=== PATIENT | female | born 1980 | race Caucasian/White ===

== ENCOUNTER 2018-11-16 15:31 | Emergency (ER) | payer BC, OTHER, SELFPAY ==
[2018-11-16 15:41] VITALS: BP 154/73
--- NOTE | 2018-11-16 16:05 | EDM.PDOC ---
ED HPI GENERAL MEDICAL PROBLEM - General Chief Complaint: Bite:Animal, Insect Stated Complaint: BEE STING Time Seen by Provider: 11/16/18 15:43 - History of Present Illness INITIAL COMMENTS - FREE TEXT/NARRATIVE: HISTORY AND PHYSICAL: History of present illness: Patient 38-year-old white female presents status post insect bite in the form of bee sting to her right hand which he developed some scratchy throat subsequent she has had severe reaction prior. Patient does not have EpiPen she did take 2 Benadryl prior and is feeling improved since arrival here Review of systems: As per history of present illness and below otherwise all systems reviewed and negative. Past medical history: As per history of present illness and as reviewed below otherwise noncontributory. Surgical history: As per history of present illness and as reviewed below otherwise noncontributory. Social history: No reported history of drug or alcohol abuse. Family history: As per history of present illness and as reviewed below otherwise noncontributory. Physical exam: HEENT: Atraumatic, normocephalic, pupils reactive, negative for conjunctival pallor or scleral icterus, mucous membranes moist, throat clear, neck supple, nontender, trachea midline. Lungs: Clear to auscultation, breath sounds equal bilaterally, chest nontender. Heart: S1S2, regular, negative for clicks, rubs, or JVD. Abdomen: Soft, nondistended, nontender. Negative for masses or hepatosplenomegaly. Negative for costovertebral tenderness. Pelvis: Stable nontender. Genitourinary: Deferred. Rectal: Deferred. Extremities: Small swelling noted on the thenar eminence of her right hand with no retained stinger or other significant finding. Neuro: Awake, alert, oriented. Cranial nerves II through XII unremarkable. Cerebellum unremarkable. Motor and sensory unremarkable throughout. Exam nonfocal. Diagnostics: None Therapeutics: None Impression: #1 insect bite right hand (bee sting) Definitive disposition and diagnosis as appropriate pending reevaluation and review of above. Right Hand Pain Score (Numeric/FACES): 3 - Related Data Allergies Allergy/AdvReac Type Severity Reaction Status Date / Time Penicillins Allergy Hives Verified 11/16/18 15:39 Home Meds: Home Meds . [No Known Home Meds] 11/16/18 [History] Past Medical History - Infectious Disease History Infectious Disease History: Reports: Chicken Pox - Past Surgical History HEENT Surgical History: Reports: Oral Surgery Musculoskeletal Surgical History: Reports: Arthroscopic Knee Social & Family History - Family History Family Medical History: Noncontributory - Tobacco Use Smoking Status *Q: Never Smoker - Caffeine Use Caffeine Use: Reports: None - Recreational Drug Use Recreational Drug Use: No ED ROS GENERAL - Review of Systems Review Of Systems: ROS reveals no pertinent complaints other than HPI. ED EXAM, ANIMAL BITE - Physical Exam Exam: See Below (See dictation) Course - Vital Signs Last Recorded V/S: Last Vital Signs Temp 36.5 C 11/16/18 15:39 Pulse 71 11/16/18 15:39 Resp 16 11/16/18 15:39 BP 154/73 H 11/16/18 15:39 Pulse Ox 96 11/16/18 15:39 Departure - Departure Time of Disposition: 16:10 Disposition: Home, Self-Care 01 Condition: Good Clinical Impression: Insect bite - Discharge Information Referrals: PCP,Unknown [Primary Care Provider] - Additional Instructions: The following information is given to patients seen in the emergency department who are being discharged to home. This information is to outline your options for follow-up care. We provide all patients seen in our emergency department with a follow-up referral. The need for follow-up, as well as the timing and circumstances, are variable depending upon the specifics of your emergency department visit. If you don't have a primary care physician on staff, we will provide you with a referral. We always advise you to contact your personal physician following an emergency department visit to inform them of the circumstance of the visit and for follow-up with them and/or the need for any referrals to a consulting specialist. The emergency department will also refer you to a specialist when appropriate. This referral assures that you have the opportunity for followup care with a specialist. All of these measure are taken in an effort to provide you with optimal care, which includes your followup. Under all circumstances we always encourage you to contact your private physician who remains a resource for coordinating your care. When calling for followup care, please make the office aware that this follow-up is from your recent emergency room visit. If for any reason you are refused follow-up, please contact the [facility] emergency department at and asked to speak to the emergency department charge nurse. EpiPen Medrol as directed follow-up primary medical doctor as needed as discussed and return as needed as discussed
== END 2018-11-16 16:46 | disposition home or self-care (01) ==
LOC: MW.ED 15:31
DX: S60.561A Insect bite (nonvenomous) of right hand, initial encounter (principal); Z88.0 Allergy status to penicillin; W57.XXXA Bitten or stung by nonvenomous insect and other nonvenomous arthropods, initial encounter
CPT/HCPCS: 99282

== ENCOUNTER 2019-03-06 06:35 | Day surgery (SDC) | payer OTHER, SELFPAY ==
[~2019-03-06 06:35] MED LIST: Lactated Ringers 1,000 ML IV SCH
--- NOTE | 2019-03-06 07:17 | PCM.PREANE ---
Preanesthetic Assessment - Anesthesia/Transfusion/Family Hx Anesthesia History: Prior Anesthesia Without Reaction Family History of Anesthesia Reaction: No Transfusion History: No Prior Transfusion(s) Intubation History: Unknown - Review of Systems General: No Symptoms Pulmonary: No Symptoms Cardiovascular: No Symptoms Gastrointestinal: Difficulty Swallowing Neurological: No Symptoms Other: Reports: None - Physical Assessment Vital Signs: Last Vital Signs Temp 36.7 C 03/06/19 07:13 Pulse 62 03/06/19 07:13 Resp 16 03/06/19 07:13 BP 119/67 03/06/19 07:13 Pulse Ox 94 L 03/06/19 07:13 Height: 5 ft 2 in Weight: 83.007 kg ASA Class: 2 Mental Status: Alert & Oriented x3 Airway Class: Mallampati = 2 Dentition: Reports: Normal Dentition (small chip on the back of lt. front incisor) Thyro-Mental Finger Breadths: 3 Mouth Opening Finger Breadths: 3 ROM/Head Extension: Full Lungs: Clear to Auscultation, Normal Respiratory Effort Cardiovascular: Regular Rate, Regular Rhythm - Lab Values: Laboratory Last Values Urine HCG, Qual NEGATIVE (NEGATIVE) 03/06/19 06:45 - Allergies Allergies/Adverse Reactions: Allergies Allergy/AdvReac Type Severity Reaction Status Date / Time metronidazole Allergy Hives Verified 03/06/19 07:12 Penicillins Allergy Seizure Verified 03/06/19 07:12 - Blood Blood Available: No - Anesthesia Plan Pre-Op Medication Ordered: None - Acknowledgements Anesthesia Type Planned: MAC Pt an Appropriate Candidate for the Planned Anesthesia: Yes Alternatives and Risks of Anesthesia Discussed w Pt/Guardian: Yes Pt/Guardian Understands and Agrees with Anesthesia Plan: Yes PreAnesthesia Questionnaire HEENT History: Reports: Allergic Rhinitis, Other (See Below) Other HEENT History: wears glasses Cardiovascular History: Reports: None Respiratory History: Reports: None, Other (See Below) (h/o asthma, ok now) Gastrointestinal History: Reports: GERD, Other (See Below) Other Gastrointestinal History: dysphagia Genitourinary History: Reports: None 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 (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) (h/o ovarian cyst) Musculoskeletal History: Reports: None Neurological History: Reports: Migraines, Seizure Other Neuro History: states migraines in the past, seizure due to penicillin reaction Psychiatric History: Reports: Anxiety, Depression Other Psychiatric History: states depression & anxiety in the past Endocrine/Metabolic History: Reports: Obesity/BMI 30+ Hematologic History: Reports: None Immunologic History: Reports: None Oncologic (Cancer) History: Reports: None Dermatologic History: Reports: None - Infectious Disease History Infectious Disease History: Reports: Chicken Pox - Past Surgical History Head Surgeries/Procedures: Reports: None HEENT Surgical History: Reports: Oral Surgery Cardiovascular Surgical History: Reports: None Respiratory Surgical History: Reports: None GI Surgical History: Reports: Colonoscopy (age 31) Female Surgical History: Reports: None Endocrine Surgical History: Reports: None Neurological Surgical History: Reports: None Musculoskeletal Surgical History: Reports: Arthroscopic Knee (rt. knee ACL repair) Other Musculoskeletal Surgeries/Procedures:: Rt ACL reconstruction Oncologic Surgical History: Reports: None Dermatological Surgical History: Reports: None - SUBSTANCE USE Smoking Status *Q: Current Some Day Smoker Tobacco Use Within Last Twelve Months: Cigarettes Recreational Drug Use History: No - HOME MEDS Home Medications: Home Meds Metoclopramide HCl [Reglan] 1 tab PO TID PRN 02/28/19 [History] - CURRENT (IN HOUSE) MEDS Current Meds: Current Medications Lactated Ringer's (Ringers, Lactated) 1,000 mls @ 125 mls/hr IV [facility] Last Admin: 03/06/19 07:13 Dose: 125 mls/hr
[2019-03-06] MEDS ORDERED: Propofol 200 MG/20 ML SDV ONE (07:23)
--- NOTE | 2019-03-06 08:14 | PCM.OPNOTE ---
- General Post-Op/Procedure Note Date of Surgery/Procedure: 03/06/19 Operative Procedure(s): Esophagogastroduodenoscopy with gastric biopsies Pre Op Diagnosis: Progressive dysphagia. Abdominal bloating. Post-Op Diagnosis: Mild chronic gastritis Anesthesia Technique: MAC (ASA II) Primary Surgeon: Roel Spencer Condition: Good Free Text/Narrative:: DICTATION [id number] CPT CODE 56569
[2019-03-06] MEDS ORDERED: Lactated Ringers 1,000 ML IV SCH (08:15)
--- NOTE | 2019-03-06 08:28 | PCM.POSTAN ---
POST ANESTHESIA ASSESSMENT - MENTAL STATUS Mental Status: Alert, Oriented - VITAL SIGNS Vital Signs: Last Vital Signs Temp 36.7 C 03/06/19 07:13 Pulse 63 03/06/19 08:25 Resp 20 03/06/19 08:25 BP 107/62 03/06/19 08:25 Pulse Ox 94 L 03/06/19 08:25 - RESPIRATORY Respiratory Status: Respiratory Rate WNL, Airway Patent, O2 Saturation Stable - CARDIOVASCULAR CV Status: Pulse Rate WNL, Blood Pressure Stable - GASTROINTESTINAL GI Status: No Symptoms - PAIN Pain Score: 0 - POST OP HYDRATION Hydration Status: Adequate & Stable - OBSERVATIONS Free Text/Narrative:: no anesthesia problems
--- NOTE | 2019-03-06 08:50 | PCM48HPAN ---
Post Anesthesia Note - EVALUATION WITHIN 48HRS OF ANESTHETIC Vital Signs in Normal Range: Yes Patient Participated in Evaluation: Yes Respiratory Function Stable: Yes Airway Patent: Yes Cardiovascular Function Stable: Yes Hydration Status Stable: Yes Pain Control Satisfactory: Yes Nausea and Vomiting Control Satisfactory: Yes Mental Status Recovered: Yes Vital Signs: Last Vital Signs Temp 36.7 C 03/06/19 07:13 Pulse 63 03/06/19 08:25 Resp 20 03/06/19 08:25 BP 107/62 03/06/19 08:25 Pulse Ox 94 L 03/06/19 08:25 - COMMENTS/OBSERVATIONS Free Text/Narrative:: No anesthesia problems
[2019-03-06 08:59] VITALS: BP 131/59; PULSE 68
--- NOTE | 2019-03-06 11:07 | OR ---
SURGEON: Roel Spencer M.D. DATE OF PROCEDURE: 03/06/2019 OPERATION PERFORMED: Esophagogastroduodenoscopy with gastric biopsy. PRIMARY SURGEON: Roel Spencer MD. ANESTHESIA: MAC. ASA CLASSIFICATION: II. PREOPERATIVE DIAGNOSIS: Persistent dysphagia with abdominal bloating. POSTOPERATIVE DIAGNOSIS: Mild chronic gastritis, no esophageal stricture. DESCRIPTION OF PROCEDURE: The patient was taken to the endoscopy room and positioned on the endoscopy table in the left lateral decubitus position. Time-out was called for appropriate identification of the patient and procedure. Monitored anesthesia care was provided. The bite block was placed between the patient's teeth. The gastroscope was inserted through the bite block and advanced without difficulty through the esophagus and stomach into the duodenum where examination was carried out in a retrograde fashion. The duodenum shows no acute inflammatory changes or ulcerations. The stomach does show a mild to moderate gastritis. No ulcerations were noted. No polyps were encountered. The gastroscope was then retroflexed to visualize the proximal stomach. Again, no ulcers were noted and there was no significant gastritis in the proximal stomach. No significant hiatal hernia was noted. The gastroscope was then straightened and slowly withdrawn, carefully visualizing the greater and lesser curvatures. No ulcers or inflammatory changes were noted. The GE junction is well defined and shows no acute inflammatory changes or ulcerations. The esophagus demonstrates fair contractility, although no significant longitudinal stripping waves were noted. There was no resistance to passage of the scope, but no obvious stricture was noted. The vocal cords had briefly been visualized as the scope was inserted and no vocal cord lesions were identified. The gastroscope was then removed with the patient having tolerated the procedure well. She was subsequently taken to recovery room in stable condition. LENA / SHASHI /[id number]
== END 2019-03-06 08:43 | disposition home or self-care (01) ==
LOC: MW.SDS 06:35
PROVIDERS: ATTEND Surgery
DX: K29.50 Unspecified chronic gastritis without bleeding (principal); G43.109 Migraine with aura, not intractable, without status migrainosus; F41.8 Other specified anxiety disorders; J45.909 Unspecified asthma, uncomplicated; F17.200 Nicotine dependence, unspecified, uncomplicated; E66.9 Obesity, unspecified; Z88.0 Allergy status to penicillin; Z88.1 Allergy status to other antibiotic agents; Z68.33 Body mass index [BMI] 33.0-33.9, adult
CPT/HCPCS: 43239; 81025; 88305; 88312; J2704; J7120; 00731

== ENCOUNTER 2019-04-30 08:52 | Emergency (ER) | payer OTHER, SELFPAY ==
[2019-04-30] MEDS ORDERED: predniSONE 20 MG Tab PO ONE (09:12)
--- NOTE | 2019-04-30 09:14 | EDM.PDOC ---
ED HPI GENERAL MEDICAL PROBLEM - General Chief Complaint: Respiratory Problem Stated Complaint: BRONCHITIS Time Seen by Provider: 04/30/19 09:08 Source of Information: Reports: Patient History Limitations: Reports: No Limitations - History of Present Illness Duration: Day(s): (1 day), Getting Worse Location: Reports: Chest Quality: Reports: Ache, Burning Severity: Moderate Improves with: Reports: Rest Worsens with: Reports: Breathing Associated Symptoms: Reports: cough w sputum, Fever/Chills. Denies: Shortness of Breath - Related Data Allergies Allergy/AdvReac Type Severity Reaction Status Date / Time metronidazole Allergy Hives Verified 04/30/19 09:12 Penicillins Allergy Seizure Verified 04/30/19 09:12 Home Meds: Home Meds . 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) (h/o ovarian cyst) Musculoskeletal History: Reports: None Neurological History: Reports: Migraines, Seizure Other Neuro History: states migraines in the past, seizure due to penicillin reaction Psychiatric History: Reports: Anxiety, Depression Other Psychiatric History: states depression & anxiety in the past Endocrine/Metabolic History: Reports: Obesity/BMI 30+ Hematologic History: Reports: None Immunologic History: Reports: None Oncologic (Cancer) History: Reports: None Dermatologic History: Reports: None - Infectious Disease History Infectious Disease History: Reports: Chicken Pox - Past Surgical History Head Surgeries/Procedures: Reports: None HEENT Surgical History: Reports: Oral Surgery Cardiovascular Surgical History: Reports: None Respiratory Surgical History: Reports: None GI Surgical History: Reports: Colonoscopy (age 31) Female Surgical History: Reports: None Endocrine Surgical History: Reports: None Neurological Surgical History: Reports: None Musculoskeletal Surgical History: Reports: Arthroscopic Knee (rt. knee ACL repair) Other Musculoskeletal Surgeries/Procedures:: Rt ACL reconstruction Oncologic Surgical History: Reports: None Dermatological Surgical History: Reports: None Social & Family History - Family History Family Medical History: Noncontributory - Caffeine Use Caffeine Use: Reports: None ED ROS GENERAL - Review of Systems Review Of Systems: Comprehensive ROS is negative, except as noted in HPI. ED EXAM, GENERAL - Physical Exam Exam: See Below Free Text/Narrative:: Exam: See Below Exam Limited By: No Limitations Head: Atraumatic Neck: Normal Inspection. No: Carotid Bruit, Lymphadenopathy (R) Respiratory/Chest: No Respiratory Distress, Lungs Clear, Normal Breath Sounds, No Accessory Muscle Use. Cardiovascular: Normal Peripheral Pulses, Regular Rate, Rhythm, No Edema, No JVD GI/Abdominal: Normal Bowel Sounds, Tender. No: Non-Tender, Splenomegaly Back Exam: Normal Inspection. No: CVA Tenderness (R) Extremities: Normal Inspection. No: No Pedal Edema Neurological: Alert, Oriented, Normal Cognition Psychiatric: Normal Affect Skin Exam: Warm Lymphatic: No Adenopathy General Appearance: Alert, No Apparent Distress Head: Atraumatic Neck: Normal Inspection Respiratory/Chest: No Respiratory Distress, Lungs Clear, Normal Breath Sounds, No Accessory Muscle Use. No: Rhonchi, Wheezing Cardiovascular: Normal Peripheral Pulses, Regular Rate, Rhythm, No Edema, No JVD GI/Abdominal: Normal Bowel Sounds Back Exam: Normal Inspection Extremities: Normal Inspection Neurological: Alert, Oriented Psychiatric: Normal Affect Skin Exam: Warm, Dry Course - Vital Signs Text/Narrative:: Influenza is negative. Patient was started on prednisone. I will place her on a Zithromax Dosepak give her some Robitussin-AC. I will send her home with albuterol inhaler and spacer. Patient has agreed to quit smoking cigarettes. She is return to ER if symptoms are worse or if she is getting more short of breath with exertion. Last Recorded V/S: Last Vital Signs Temp 36.9 C 04/30/19 09:12 Pulse 96 04/30/19 09:12 Resp 18 04/30/19 09:12 BP 125/76 04/30/19 09:12 Pulse Ox 95 04/30/19 09:12 - Orders/Labs/Meds Meds: Medications Discontinued Medications Generic Name Dose Route Start Last Admin Trade Name Kavinq PRN Reason Stop Dose Admin Prednisone 40 mg 04/30/19 09:12 04/30/19 09:23 Prednisone PO 04/30/19 09:13 40 mg ONETIME ONE Administration Departure - Departure Time of Disposition: 09:42 Disposition: Home, Self-Care 01 Condition: Good Clinical Impression: Acute bronchitis - Discharge Information Instructions: Acute Bronchitis, Adult, [id number] Referrals: Stacey Cardoso, GEOLOGIST [facility]ROLE[facility] [Primary Care Provider] - Forms: ED Department Discharge Sepsis Event Note - Focused Exam Vital Signs: Vital Signs Temp Pulse Resp BP Pulse Ox 04/30/19 09:12 36.9 C 96 18 125/76 95 Date Exam was Performed: 04/30/19 Time Exam was Performed: 09:41
[2019-04-30 10:11] VITALS: BP 114/63; PULSE 73
== END 2019-04-30 10:09 | disposition home or self-care (01) ==
LOC: MW.ED 08:52
DX: J20.9 Acute bronchitis, unspecified (principal); Z88.0 Allergy status to penicillin; Z88.1 Allergy status to other antibiotic agents
CPT/HCPCS: 87804; 99284; A9270; 99283